=== PATIENT | female | born 1970 | race Caucasian/White ===

== ENCOUNTER 2019-04-12 15:27 | Inpatient (IN) | payer MEDICARE, MEDICAID ==
[2019-04-12 15:57] LABS: % EOSINOPHILS 3.6 % (0.0-5.0); % MONOCYTES 4.6 % (2.0-10.0); % NEUTROPHILS 66.8 % (40.0-80.0); EOSINOPHILE ABSOLUTE 0.3 Th/cmm (0.1-0.4); HEMATOCRIT 41.5 % (41.0-60); HEMOGLOBIN 14.4 gm/dL (12-16); LYMPHOCYTE ABSOLUTE 2.4 Th/cmm (1.5-3.0); MEAN CORPUSCULAR HEMOGLOBIN 28.4 pg (27.0-31.0); MEAN CORPUSCULAR HGB CONC 34.6 pg (28.0-36.0); MONOCYTE ABSOLUTE 0.4 Th/cmm (0.3-1.0); NEUTROPHILE ABSOLUTE 6.5 Th/cmm (1.8-8.0); PLATELET COUNT 247 Th/cmm (150-400); RED BLOOD COUNT 5.06 Mil/cmm (3.80-5.10); RED CELL DISTRIBUTION WIDTH 13.2 % (11.5-20.0); WHITE BLOOD COUNT 9.6 Th/cmm (4.8-10.8)
--- NOTE | 2019-04-12 16:03 | ED Physician Chart ---
ED Chief Complaint/HPI - Patient Information Date Seen:: 04/12/19 Time Seen:: 16:00 Chief Complaint:: psyche history with decrease activity History of Present Illness:: one to two days Allergies:: Allergies Allergy/AdvReac Type Severity Reaction Status Date / Time No Known Allergies Allergy Verified 04/12/19 15:48 Vitals:: Vital Signs - 8 hr 04/12/19 15:49 Temp 98.7 F HR 84 RR 16 BP 120/65 O2 Sat % 96 Historian:: EMS Review:: Nurse's Note Reviewed, EMS run form Reviewed ED Review of Systems - Review of Systems General/Constitutional: No fever ED Past Medical History - Past Medical History Past Medical History: Other (psyche) Family Medical History - Family Member Mother History Unknown: Yes ED Physical Exam - Physical Examination General/Constitutional: Non-toxic appearing Head: Atraumatic Eyes: Lids, conjuctiva normal (sacral decubiti) ENMT: External ears, nose nl Respiratory: Nl effort/Exclusion Cardio Vascular: RRR GI: No tenderness/rebounding/guarding Extremities: Normal digits & nails ED Assessment - Assessment General Assessment: psyche change etiology ED Septic Shock - . Is Septic Shock (SBP<90, OR Lactate>4 mmol\L) present?: No - <6hrs of presentation: Vital Signs: Vital Signs - 8 hr 04/12/19 15:49 Temp 98.7 F HR 84 RR 16 BP 120/65 O2 Sat % 96 ED Reassessment (Disposition) - Reassessment Reassessment Condition:: Unchanged - Patient Disposition Discharge/Transfer:: Acute Care w/in this hosp (need to in hospital evalution failure to eat tsh ua tegretol pending)
[2019-04-12 16:11] LABS: ALB/GLOB RATIO 1.2 (1.0-1.8); ALBUMIN 3.8 gm/dL (3.7-5.3); ALKALINE PHOSPHATASE 69 U/L (34-104); ANION GAP 12.3 (7.0-16.0); BILIRUBIN,TOTAL 0.3 mg/dL (0.3-1.0); BUN - UREA NITROGEN 13 mg/dL (7-25); CALCIUM SERUM 8.8 mg/dL (8.6-10.3); CARBON DIOXIDE 26.4 mEq/L (21.0-31.0); CHLORIDE 103 mEq/L (98-107); CREATININE - SERUM 0.7 mg/dL (0.6-1.2); GFR AFRICAN-AMERICAN > 60.0 ml/min (>90); GFR NON AFRICAN-AMERICAN > 60.0 ml/min; GLUCOSE 172 mg/dL (70-105); POTASSIUM SERUM 3.7 mEq/L (3.5-5.1); SGOT 13 U/L (13-39); SGPT/ALT 8 U/L (7-52); SODIUM SERUM 138 mEq/L (136-145)
[2019-04-12] MEDS ORDERED: Magnesium Hydroxide (MOM) 30 mL UDC PO PRN (20:27)
[2019-04-12] MEDS ORDERED: Maalox 30 mL Cup PO PRN (20:27)
[2019-04-12] MEDS ORDERED: Non-Formulary Item 1 EA (Acetaminophen [Tylenol] 650 MG) PO PRN (20:27)
[2019-04-12] MEDS ORDERED: GLUCAGON HCl 1 MG KIT IM PRN (20:29)
[2019-04-12] MEDS ORDERED: guaiFENesin 200 MG/10 ML UDC PO PRN (20:29)
[2019-04-12] MEDS ORDERED: Albuterol Nebulizer 2.5mg/3mL HHN PRN (20:29)
[2019-04-12] MEDS ORDERED: Ipratropium Neb 0.5 mg/2.5 mL UD HHN PRN (20:29)
[2019-04-12] MEDS ORDERED: Dextrose 50% 50 mL Abboject IVP PRN (20:29)
[2019-04-12] MEDS: D5-0.45NS 1,000 ML IV SCH (21:30)
--- NOTE | 2019-04-12 21:54 | History & Physical ---
ADMIT DATE: 04/12/2019 CHIEF COMPLAINT: Generalized weakness, worsening wounds. HISTORY OF PRESENT ILLNESS: This is a 48-year-old female with history of seizure, psych disorder, was brought in secondary to not acting herself, not taking her medications and feeling sluggish. The patient was brought in the ER and admitted for further management. The patient is not a best historian. Denies chest pain, shortness of breath. PAST MEDICAL HISTORY: As mentioned in history of present illness. PAST SURGICAL HISTORY: Previous brain surgery in the past. ALLERGIES: No known drug allergies. MEDICATIONS: The patient is on Keppra, Tylenol, Dulcolax, Xalatan, magnesium, multivitamins. FAMILY HISTORY: Noncontributory. SOCIAL HISTORY: The patient is a [facility] patient requiring 24-hour total care. REVIEW OF SYSTEMS: This is limited secondary to being in a comatose state. We will try to obtain more detailed review of system at a later date by talking to family members, there was a dad, but my understanding was the patient's guardian, but he recently . There is only one, Zoltan, number is [phone]. We will also try to get information from nursing staff at [facility], [phone]. PHYSICAL EXAMINATION: VITAL SIGNS: Blood pressure 101/67, respirations 18, pulse 82, temperature 98.6. GENERAL: A middle-aged female, appears chronically ill. NECK: Supple. No mass. LUNGS: Equal breath sounds, few rhonchi. HEART: Regular rate and rhythm without appreciable murmurs. ABDOMEN: Soft, globular. EXTREMITIES: Positive excoriations. There is a wound in the sacral area. Please see the picture. Positive contractures. NEUROLOGIC: Limited. LABORATORY DATA: WBC 9, hemoglobin 14, platelets 247. Sodium 120-130, potassium 3.7, BUN 13, creatinine 0.7, blood sugar 172. ASSESSMENT: Generalized weakness, failure to thrive, hyperglycemia, seizure, organic brain syndrome.worsening decub ulcer PLAN: We will continue the patient with the wound care. Continue PPI, insulin sliding scale, Xalatan, fingerstick. We will send UA and C and S. We will check BUN and Keppra. We will monitor the patient closely. aggresive wound care per protocol [facility]# [id number] MTDD
[2019-04-13 04:58] LABS: % BASOPHILS 0.1 % (0.0-2.0); % EOSINOPHILS 3.4 % (0.0-5.0); % LYMPHOCYTES 21.4 % (20.0-50.0); % MONOCYTES 4.9 % (2.0-10.0); % NEUTROPHILS 70.2 % (40.0-80.0); EOSINOPHILE ABSOLUTE 0.3 Th/cmm (0.1-0.4); HEMATOCRIT 41.4 % (41.0-60); HEMOGLOBIN 13.5 gm/dL (12-16); MEAN CELL VOLUME 81.9 fl (81-100); MEAN CORPUSCULAR HEMOGLOBIN 26.7 pg (27.0-31.0); MEAN CORPUSCULAR HGB CONC 32.6 pg (28.0-36.0); MONOCYTE ABSOLUTE 0.5 Th/cmm (0.3-1.0); NEUTROPHILE ABSOLUTE 6.4 Th/cmm (1.8-8.0); PLATELET COUNT 302 Th/cmm (150-400); RED BLOOD COUNT 5.05 Mil/cmm (3.80-5.10); RED CELL DISTRIBUTION WIDTH 13.6 % (11.5-20.0); WHITE BLOOD COUNT 9.2 Th/cmm (4.8-10.8)
[2019-04-13 05:56] LABS: ANION GAP 11.4 (7.0-16.0); BUN - UREA NITROGEN 12 mg/dL (7-25); CALCIUM SERUM 8.9 mg/dL (8.6-10.3); CARBON DIOXIDE 27.2 mEq/L (21.0-31.0); CHLORIDE 105 mEq/L (98-107); CREATININE - SERUM 0.6 mg/dL (0.6-1.2); GFR AFRICAN-AMERICAN > 60.0 ml/min (>90); GFR NON AFRICAN-AMERICAN > 60.0 ml/min; GLUCOSE 166 mg/dL (70-105); POTASSIUM SERUM 3.6 mEq/L (3.5-5.1); SODIUM SERUM 140 mEq/L (136-145)
[2019-04-13] MEDS: INSULIN LISPRO SLIDING SCALE 100 UNITS/ML UNIT SUBQ SCH ×2 (08:36→17:09)
[2019-04-13] MEDS: Multivitamin w/ Minerals Tab PO SCH (08:39)
--- NOTE | 2019-04-13 12:21 | Internal Medicine Prog Note ---
Internal Medicine Subjective - Subjective Patient seen and examined:: with staff, chart reviewed Patient is:: awake, verbal, interactive, in bed, confused Patient Complaints of:: congestion Per staff patient has:: no adverse event, no episodes of fall, poor appetite Internal Medicine Objective - Results Result Diagrams: 04/13/19 04:25 04/13/19 04:25 Recent Labs: Laboratory Last Values WBC 9.2 Th/cmm (4.8-10.8) 04/13/19 04:25 RBC 5.05 Mil/cmm (3.80-5.10) 04/13/19 04:25 Hgb 13.5 gm/dL (12-16) 04/13/19 04:25 Hct 41.4 % (41.0-60) 04/13/19 04:25 MCV 81.9 fl (81-100) 04/13/19 04:25 MCH 26.7 pg (27.0-31.0) L 04/13/19 04:25 MCHC Differential 32.6 pg (28.0-36.0) 04/13/19 04:25 RDW 13.6 % (11.5-20.0) 04/13/19 04:25 Plt Count 302 Th/cmm (150-400) D 04/13/19 04:25 MPV 8.2 fl 04/13/19 04:25 Neutrophils % 70.2 % (40.0-80.0) 04/13/19 04:25 Lymphocytes % 21.4 % (20.0-50.0) 04/13/19 04:25 Monocytes % 4.9 % (2.0-10.0) 04/13/19 04:25 Eosinophils % 3.4 % (0.0-5.0) 04/13/19 04:25 Basophils % 0.1 % (0.0-2.0) 04/13/19 04:25 Sodium 140 mEq/L (136-145) 04/13/19 04:25 Potassium 3.6 mEq/L (3.5-5.1) 04/13/19 04:25 Chloride 105 mEq/L (98-107) 04/13/19 04:25 Carbon Dioxide 27.2 mEq/L (21.0-31.0) 04/13/19 04:25 Anion Gap 11.4 (7.0-16.0) 04/13/19 04:25 BUN 12 mg/dL (7-25) 04/13/19 04:25 Creatinine 0.6 mg/dL (0.6-1.2) 04/13/19 04:25 Est GFR ( Amer) > 60.0 ml/min (>90) 04/13/19 04:25 Est GFR (Non-Af Amer) > 60.0 ml/min 04/13/19 04:25 BUN/Creatinine Ratio 20.0 04/13/19 04:25 Glucose 166 mg/dL (70-105) H 04/13/19 04:25 POC Glucose 136 MG/DL (70 - 105) H 04/13/19 08:33 Calcium 8.9 mg/dL (8.6-10.3) 04/13/19 04:25 Total Bilirubin 0.3 mg/dL (0.3-1.0) 04/12/19 15:40 AST 13 U/L (13-39) 04/12/19 15:40 ALT 8 U/L (7-52) 04/12/19 15:40 Alkaline Phosphatase 69 U/L (34-104) 04/12/19 15:40 Ammonia 30 umol/L (16-53) 04/13/19 04:25 B-Natriuretic Peptide < 5.0 pg/mL (5.0-100.0) L 04/13/19 04:25 Total Protein 7.0 gm/dL (6.0-8.3) 04/12/19 15:40 Albumin 3.8 gm/dL (3.7-5.3) 04/12/19 15:40 Globulin 3.2 gm/dL 04/12/19 15:40 Albumin/Globulin Ratio 1.2 (1.0-1.8) 04/12/19 15:40 TSH 1.03 uIU/ml (0.34-5.60) 04/12/19 15:40 Carbamazepine < 2.0 ug/ml (4.0-12.0) L 04/12/19 15:40 - Physical Exam Vitals and I&O: Vital Signs Temp 98.2 F 04/13/19 04:00 Pulse 62 04/13/19 06:38 Resp 18 04/13/19 06:38 BP 127/75 04/13/19 04:00 Pulse Ox 93 04/13/19 06:38 Intake & Output 04/12/19 04/13/19 04/13/19 18:59 06:59 18:59 Output Total 700 Balance -700 Weight (lbs) 77.111 kg 77.111 kg Output: Urine 700 Other: Weight Source Estimated Bedscale Active Medications: Current Medications Acetaminophen (Tylenol) 650 mg PO Q4H PRN PRN Reason: Pain Or Fever above 101 Stop: 06/11/19 20:28 Al Hydrox/Mg Hydrox/Simethicone (Maalox) 30 ml PO Q4H PRN PRN Reason: GI UPSET Albuterol Sulfate (Albuterol 2.5mg/3ml Neb Ud) 2.5 mg HHN Q2HRT PRN PRN Reason: Shortness of Breath or Wheeze Stop: 06/11/19 20:28 Bisacodyl (Dulcolax 10 Mg Supp) 10 mg RC Q24H PRN PRN Reason: IF MOM INEFFECTIVE Stop: 06/11/19 20:26 Dextrose (D50w) 50 ml IVP PRN PRN PRN Reason: Blood Glucose less than 70 Stop: 06/11/19 20:28 Dextrose (Glutose 40%) 18.75 gm PO PRN PRN PRN Reason: Blood Glucose less than 70 Stop: 06/11/19 20:28 Glucagon (Glucagen) 1 mg IM PRN PRN PRN Reason: Blood Glucose less than 70 Stop: 06/11/19 20:28 Guaifenesin (Robitussin) 200 mg PO Q4HR PRN PRN Reason: Cough or Congestion Stop: 06/11/19 20:28 Dextrose/Sodium Chloride (D5-0.45ns) 1,000 mls @ 80 mls/hr IV .[id number] [facility] Stop: 06/11/19 20:29 Last Admin: 04/12/19 21:30 Dose: 80 mls/hr Insulin Human Lispro (Humalog Insulin Sliding Scale) 0 units SUBQ BID [facility]; Protocol Stop: 06/12/19 08:59 Last Admin: 04/13/19 08:36 Dose: Not Given Ipratropium [place] (Atrovent Neb 0.5mg/2.5ml) 0.5 mg HHN Q2HRT PRN PRN Reason: Shortness of Breath or Wheeze Stop: 06/11/19 20:28 Latanoprost (Xalatan 0.005% Ophth Soln) 1 drop EACH EYE HS [facility] Stop: 06/11/19 20:59 Last Admin: 04/12/19 21:30 Dose: Not Given Levetiracetam (Keppra) 500 mg PO Q12H [place] Stop: 06/11/19 20:29 Last Admin: 04/13/19 08:39 Dose: 500 mg Lorazepam (Ativan) 1 mg IV Q4H PRN; Protocol PRN Reason: Seizure Stop: 06/11/19 20:28 Magnesium Hydroxide (Milk Of Magnesia) 30 ml PO Q24H PRN PRN Reason: IF NO BM IN THREE DAYS Stop: 06/11/19 20:26 Ondansetron HCl (Zofran) 4 mg IV Q8H PRN PRN Reason: Nausea / Vomiting Stop: 06/11/19 20:28 Zolpidem Tartrate (Ambien) 10 mg PO HS PRN PRN Reason: Insomnia Stop: 06/11/19 20:28 General: lethargic HEENT: NC/AT, PERRLA, EOMI Neck: Supple, No JVD Lungs: rales Cardiovascular: RRR, Normal S1, Normal S2, without murmur Abdomen: soft, non-tender, non-distended, positive bowel sound Extremities: excoriation, ulcers stage 2 Neurological: no change, disorganized Internal Medicine Assmt/Plan - Assessment Assessment: ASSESSMENT: Generalized weakness, failure to thrive, hyperglycemia, seizure, organic brain syndrome.worsening decub ulcer - Plan Plan: PLAN: We will continue the patient with the wound care. Continue PPI, insulin sliding scale, Xalatan, fingerstick. We will send UA and C and S. We will check BUN and Keppra. We will monitor the patient closely. aggresive wound care per protocol
--- NOTE | 2019-04-13 14:07 | Diagnostic Imaging Report ---
Head CT without intravenous contrast Indication: Confusion Comparison: None Technique: Axial images were obtained from the vertex to the skull base without IV contrast. Coronal reconstructions were made. Total DLP: 913, [id number] FINDINGS: Images of the brain obtained without contrast demonstrate evidence of bifrontal and left temporal craniotomies. There is diffuse encephalomalacia of the bifrontal lobe regions with abnormal soft tissue tissue density of the left basal ganglia region. Faint densities are seen along the bilateral periventricular regions, probably calcifications. There is also encephalomalacia of the left temporal lobe. Ex vacuo dilatation of bifrontal horns of the lateral ventricles and left temporal horn is also noted. Atrophy is noted. No midline shift. There is mild mucosal thickening of paranasal sinuses small air-fluid level in the right maxillary sinus. IMPRESSION: Diffuse postsurgical changes involving the bifrontal lobes and left temporal lobe with evidence of previous craniotomies. Diffuse encephalomalacia of the bifrontal lobes and left temporal lobe with associated ex vacuo dilatation of the lateral ventricles in these regions. Somewhat abnormal configuration of left basal ganglia region. This is indeterminate. Correlation old exams be helpful. Underlying mass lesion cannot be completely excluded. If indicated follow-up MRI with IV contrast may be obtained for further assessment Faint density seen along the bilateral lateral periventricular regions probably related to calcifications. Otherwise no gross hemorrhage identified Small air-fluid level of the right maxillary sinus.
[2019-04-13] MEDS: D5-0.45NS 1,000 ML IV SCH (14:55)
[2019-04-13 21:45] LABS: URINE SOURCE RANDOM
[2019-04-13 21:50] LABS: URINE BILIRUBIN NEGATIVE (NEGATIVE); URINE BLOOD NEGATIVE (NEGATIVE); URINE GLUCOSE (UA) NEGATIVE (NEGATIVE); URINE KETONE NEGATIVE (NEGATIVE); URINE LEUKOCYTE ESTERASE NEGATIVE (NEGATIVE); URINE NITRATE NEGATIVE (NEGATIVE); URINE PH 5.5 (4.6 - 8.0); URINE PROTEIN NEGATIVE (NEGATIVE); URINE UROBILINOGEN 0.2 E.U./dL (0.2 - 1.0)
[2019-04-13 21:51] LABS: URINE COLOR YELLOW
[2019-04-13 21:52] LABS: URINE CLARITY CLEAR (CLEAR); URINE MICROSCOPIC INDICATED? YES
[2019-04-13 21:54] LABS: URINE BACTERIA FEW /hpf (NONE SEEN); URINE EPITHELIAL CELLS FEW /lpf (FEW); URINE RBC 0-2 /hpf (0-5)
[2019-04-14] MEDS: D5-0.45NS 1,000 ML IV SCH ×2 (04:15→19:01)
[2019-04-14] MEDS: INSULIN LISPRO SLIDING SCALE 100 UNITS/ML UNIT SUBQ SCH ×2 (08:36→17:03)
[2019-04-14] MEDS: Multivitamin w/ Minerals Tab PO SCH (08:46)
[2019-04-14 13:09] LABS: A1C 6.9 % (4.8-5.6); FOLIC ACID 7.4 ng/mL (>3.0)
--- NOTE | 2019-04-14 14:45 | Internal Medicine Prog Note ---
Internal Medicine Subjective - Subjective Patient seen and examined:: with staff, chart reviewed, other (not eating) Patient is:: awake, verbal, interactive, in bed, confused Patient Complaints of:: congestion Per staff patient has:: no adverse event, no episodes of fall, poor appetite Internal Medicine Objective - Results Result Diagrams: 04/13/19 04:25 04/13/19 04:25 Recent Labs: Laboratory Last Values WBC 9.2 Th/cmm (4.8-10.8) 04/13/19 04:25 RBC 5.05 Mil/cmm (3.80-5.10) 04/13/19 04:25 Hgb 13.5 gm/dL (12-16) 04/13/19 04:25 Hct 41.4 % (41.0-60) 04/13/19 04:25 MCV 81.9 fl (81-100) 04/13/19 04:25 MCH 26.7 pg (27.0-31.0) L 04/13/19 04:25 MCHC Differential 32.6 pg (28.0-36.0) 04/13/19 04:25 RDW 13.6 % (11.5-20.0) 04/13/19 04:25 Plt Count 302 Th/cmm (150-400) D 04/13/19 04:25 MPV 8.2 fl 04/13/19 04:25 Neutrophils % 70.2 % (40.0-80.0) 04/13/19 04:25 Lymphocytes % 21.4 % (20.0-50.0) 04/13/19 04:25 Monocytes % 4.9 % (2.0-10.0) 04/13/19 04:25 Eosinophils % 3.4 % (0.0-5.0) 04/13/19 04:25 Basophils % 0.1 % (0.0-2.0) 04/13/19 04:25 Sodium 140 mEq/L (136-145) 04/13/19 04:25 Potassium 3.6 mEq/L (3.5-5.1) 04/13/19 04:25 Chloride 105 mEq/L (98-107) 04/13/19 04:25 Carbon Dioxide 27.2 mEq/L (21.0-31.0) 04/13/19 04:25 Anion Gap 11.4 (7.0-16.0) 04/13/19 04:25 BUN 12 mg/dL (7-25) 04/13/19 04:25 Creatinine 0.6 mg/dL (0.6-1.2) 04/13/19 04:25 Est GFR ( Amer) > 60.0 ml/min (>90) 04/13/19 04:25 Est GFR (Non-Af Amer) > 60.0 ml/min 04/13/19 04:25 BUN/Creatinine Ratio 20.0 04/13/19 04:25 Glucose 166 mg/dL (70-105) H 04/13/19 04:25 POC Glucose 144 MG/DL (70 - 105) H 04/14/19 08:33 Calcium 8.9 mg/dL (8.6-10.3) 04/13/19 04:25 Total Bilirubin 0.3 mg/dL (0.3-1.0) 04/12/19 15:40 AST 13 U/L (13-39) 04/12/19 15:40 ALT 8 U/L (7-52) 04/12/19 15:40 Alkaline Phosphatase 69 U/L (34-104) 04/12/19 15:40 Ammonia 30 umol/L (16-53) 04/13/19 04:25 B-Natriuretic Peptide < 5.0 pg/mL (5.0-100.0) L 04/13/19 04:25 Total Protein 7.0 gm/dL (6.0-8.3) 04/12/19 15:40 Albumin 3.8 gm/dL (3.7-5.3) 04/12/19 15:40 Globulin 3.2 gm/dL 04/12/19 15:40 Albumin/Globulin Ratio 1.2 (1.0-1.8) 04/12/19 15:40 Vitamin B12 389 pg/mL (232-1245) 04/13/19 04:25 Folic Acid 7.4 ng/mL (>3.0) 04/13/19 04:25 TSH 1.03 uIU/ml (0.34-5.60) 04/12/19 15:40 Urine Source RANDOM 04/13/19 21:40 Urine Color YELLOW 04/13/19 21:40 Urine Clarity CLEAR (CLEAR) 04/13/19 21:40 Urine pH 5.5 (4.6 - 8.0) 04/13/19 21:40 Ur Specific [place] 1.020 (1.005-1.030) 04/13/19 21:40 Urine Protein NEGATIVE mg/dL (NEGATIVE) 04/13/19 21:40 Urine Glucose (UA) NEGATIVE mg/dL (NEGATIVE) 04/13/19 21:40 Urine Ketones NEGATIVE mg/dL (NEGATIVE) 04/13/19 21:40 Urine Blood NEGATIVE (NEGATIVE) 04/13/19 21:40 Urine Nitrate NEGATIVE (NEGATIVE) 04/13/19 21:40 Urine Bilirubin NEGATIVE (NEGATIVE) 04/13/19 21:40 Urine Urobilinogen 0.2 E.U./dL (0.2 - 1.0) 04/13/19 21:40 Ur Leukocyte Esterase NEGATIVE (NEGATIVE) 04/13/19 21:40 Urine RBC 0-2 /hpf (0-5) 04/13/19 21:40 Urine WBC 2-5 /hpf (0-5) 04/13/19 21:40 Ur Epithelial Cells FEW /lpf (FEW) 04/13/19 21:40 Urine Bacteria FEW /hpf (NONE SEEN) 04/13/19 21:40 Carbamazepine < 2.0 ug/ml (4.0-12.0) L 04/12/19 15:40 - Physical Exam Vitals and I&O: Vital Signs Temp 98.6 F 04/14/19 12:00 Pulse 67 04/14/19 13:06 Resp 18 04/14/19 13:06 BP 110/71 04/14/19 12:00 Pulse Ox 94 04/14/19 13:06 Intake & Output 04/13/19 04/14/19 04/14/19 18:59 06:59 18:59 Intake Total 1000 1030 Balance 1000 1030 Weight (lbs) 72.575 kg Intake: Intake, IV Amount 1000 1000 D5-0.45NS 1,000 ml @ 80 1000 1000 mls/hr IV .[id number] [facility] Rx #:[id number] Oral 30 Other: Weight Source Estimated Active Medications: Current Medications Acetaminophen (Tylenol) 650 mg PO Q4H PRN PRN Reason: Pain Or Fever above 101 Stop: 06/11/19 20:28 Al Hydrox/Mg Hydrox/Simethicone (Maalox) 30 ml PO Q4H PRN PRN Reason: GI UPSET Albuterol Sulfate (Albuterol 2.5mg/3ml Neb Ud) 2.5 mg HHN Q2HRT PRN PRN Reason: Shortness of Breath or Wheeze Stop: 06/11/19 20:28 Ascorbic Acid (Vitamin C) 500 mg PO DAILY [facility] Stop: 06/13/19 08:59 Last Admin: 04/14/19 08:46 Dose: 500 mg Bisacodyl (Dulcolax 10 Mg Supp) 10 mg RC Q24H PRN PRN Reason: IF MOM INEFFECTIVE Stop: 06/11/19 20:26 Dextrose (D50w) 50 ml IVP PRN PRN PRN Reason: Blood Glucose less than 70 Stop: 06/11/19 20:28 Dextrose (Glutose 40%) 18.75 gm PO PRN PRN PRN Reason: Blood Glucose less than 70 Stop: 06/11/19 20:28 Glucagon (Glucagen) 1 mg IM PRN PRN PRN Reason: Blood Glucose less than 70 Stop: 06/11/19 20:28 Guaifenesin (Robitussin) 200 mg PO Q4HR PRN PRN Reason: Cough or Congestion Stop: 06/11/19 20:28 Dextrose/Sodium Chloride (D5-0.45ns) 1,000 mls @ 80 mls/hr IV .[id number] [facility] Stop: 06/11/19 20:29 Last Admin: 04/14/19 04:15 Dose: 80 mls/hr Insulin Human Lispro (Humalog Insulin Sliding Scale) 0 units SUBQ BID [facility]; Protocol Stop: 06/12/19 08:59 Last Admin: 04/14/19 08:36 Dose: Not Given Ipratropium [place] (Atrovent Neb 0.5mg/2.5ml) 0.5 mg HHN Q2HRT PRN PRN Reason: Shortness of Breath or Wheeze Stop: 06/11/19 20:28 Latanoprost (Xalatan 0.005% Ophth Soln) 1 drop EACH EYE HS [facility] Stop: 06/11/19 20:59 Last Admin: 04/13/19 20:16 Dose: 1 drop Levetiracetam (Keppra) 500 mg PO Q12H [facility] Stop: 06/11/19 20:29 Last Admin: 04/14/19 08:46 Dose: 500 mg Lorazepam (Ativan) 1 mg IV Q4H PRN; Protocol PRN Reason: Seizure Stop: 06/11/19 20:28 Magnesium Hydroxide (Milk Of Magnesia) 30 ml PO Q24H PRN PRN Reason: IF NO BM IN THREE DAYS Stop: 06/11/19 20:26 Ondansetron HCl (Zofran) 4 mg IV Q8H PRN PRN Reason: Nausea / Vomiting Stop: 06/11/19 20:28 Zinc Sulfate (Zinc Sulfate) 220 mg PO DAILY [facility] Stop: 06/13/19 08:59 Last Admin: 04/14/19 08:46 Dose: 220 mg Zolpidem Tartrate (Ambien) 10 mg PO HS PRN PRN Reason: Insomnia Stop: 06/11/19 20:28 Last Admin: 04/14/19 01:50 Dose: 10 mg General: lethargic HEENT: NC/AT, PERRLA, EOMI Neck: Supple, No JVD Lungs: rales Cardiovascular: RRR, Normal S1, Normal S2, without murmur Abdomen: soft, non-tender, non-distended, positive bowel sound Extremities: excoriation, ulcers stage 2 Neurological: no change, disorganized Internal Medicine Assmt/Plan - Assessment Assessment: ASSESSMENT: Generalized weakness, failure to thrive, hyperglycemia, seizure, organic brain syndrome.worsening decub ulcer - Plan Plan: PLAN: We will continue the patient with the wound care. Continue PPI, insulin sliding scale, Xalatan, fingerstick. We will send UA and C and S. We will check BUN and Keppra. We will monitor the patient closely. aggresive wound care per protocol refer to psych as well Nutritional Asmnt/Malnutr-PDOC - Dietary Evaluation Malnutrition Findings (Please click <Entered> for more info): Nutritional Asmnt/Malnutrition Start: 04/13/19 13: 42 Text: Status: Complete Freq: Protocol: Document 04/13/19 13:42 JERMAINE (Rec: 04/13/19 13:45 JERMAINE [id number]) Nutritional Asmnt/Malnutrition Patient General Information Nutritional Screening Moderate Risk Consult Diagnosis Generalized Weakness Pertinent Medical Hx/Surgical Hx Seizure, Psych disorder, previous brain surgery Subjective Information Consult: Pressure Ulcer to sacrococcyx, poor PO intake Pt is a 48-year-old female admitted on 04/12 from senior care d/t psych history with decreased activity. Visited Pt at 1:30pm, Pt was sleeping. Spoke with RNDesirae, Pt ate 80% breakfast without assist and Pt slept through lunch. RN stated the Pts appetite seemed just fine, she will offer her a snack once she wakes up. Per MD, Pt is receiving Zinc Sulfate, and per PO intake this morning, kcals and Pro intake is adequate to meet nutritional needs and promote and support wound healing. Will continue to monitor PO intake and any S /S of decreased appetite and/ or poor PO intake. HT: 5 FT WT: 170 LB (77.2 kg) ABW: 118 LB (53.36 kg) BMI: 33.24 (Obese) GI: WNL, Soft, Non-tender, Round BM: Not noted I/O: /700 (-700) Skin: Warm, Dry, Loose, Area of Concern Wound: PU to sacrococcyx covered with foam dressing Boris: 15 Diet Order: Cardiac, Mechanical Soft Estimated Energy Needs: ( Geriatric, ABW) 1359-3651 kcals (25-30 kcals/ kg) 53-64g Pro (1.0-1.2 g/kg) 4034-5981 ml (25-30 ml/kg) Current Diet Order/ Nutrition Support Cardiac, Mechanical Soft Pertinent Medications Maalox (PRN), Albuterol (PRN), Vitamin C, Dulcolax (PRN), D50w, Glutose 40% (PRN), D5-0. 45ns, Glucagon (PRN), INS-SS, MOM (PRN), Zofran (PRN), Zinc Sulfate Pertinent Labs 04/13: Glucose 166 POC Glucose (last 24 hours): 136 Nutritional Hx/Data Height 1.52 m Height (Calculated Centimeters) 152.4 Current Weight (lbs) 77.111 kg Weight (Calculated Kilograms) 77.1 Weight (Calculated Grams) 69352.7 [place] Body Weight 100 LB (45.45 kg) % [place] Body Weight 170 Body Mass Index (BMI) 33.2 Weight Status Obese GI Symptoms Last BM Not noted Skin Integrity/Comment: Skin: Warm, Dry, Loose, Area of Concern Wound: PU to sacrococcyx covered with foam dressing Boris: 15 Current %PO Good (75-100%) Estimated Nutritional Goals BEE in Kcals: Adj wt of IBW Calories/Kcals/Kg 25-30 Kcals Calculated 5787-6708 Protein: Adj wt of IBW Protein g/k.0-1.2 Protein Calculated 53-64 Fluid: ml 7190-6243 ml (25-30 ml/kg) Nutritional Problem 1. Problem Problem Increased nutrient utilization Etiology r/t wound healing Signs/Symptoms: aeb PU to sacrococcyx Malnutrition Related to Morbid Obesity Malnutrition related to morbid obesity No Intervention/Recommendation Comments Continue with Cardiac, Mechanical Soft diet as ordered. Expected Outcomes/Goals Expected Outcomes/Goals 1. PO intake to meet 75% of nutritional needs. 2. Monitor PO intake, wt, nutrition related labs, and skin integrity to trend WNL. 3. F/U as low risk in 7 days, 04/20
--- NOTE | 2019-04-14 18:27 | Consultation ---
DATE OF CONSULTATION: 04/14/2019 Information obtained by directly interviewing the patient as well as reviewing the admission papers. PHYSICIAN REQUESTING CONSULTATION: Dr. Al. REASON FOR CONSULTATION: Depression. HISTORY OF PRESENT ILLNESS: This is a 48-year-old woman, resident [facility] a jail facility, admitted over here for her depression and being very sluggish, not eating. Staff was spoken to. The patient is interviewed. Chart is reviewed. During the evaluation, the patient has been nodding her head, but is not giving much of any information. The patient is reported to have been treated for seizures and the patient at this time is not providing much of information. The patient is also reported to have ulcers in the sacral region. Sleep is noted to be poor. Appetite is noted to be poor. Prior to the hospitalization, the patient is not providing much of information with regards to her psychotic symptoms. No aggressive behavior is noted. The patient, however, is noted to be alert and aware that she is in the hospital. DIAGNOSTIC IMPRESSION: Depressive disorder, not otherwise specified. PLAN: To continue the patient with the supportive therapy and consider antidepressant medication. Thank you, Dr. Al for allowing me to participate in the care of the patient. JOB# [id number]
[2019-04-15 04:41] LABS: % EOSINOPHILS 4.1 % (0.0-5.0); % MONOCYTES 3.1 % (2.0-10.0); % NEUTROPHILS 71.8 % (40.0-80.0); EOSINOPHILE ABSOLUTE 0.4 Th/cmm (0.1-0.4); HEMATOCRIT 40.5 % (41.0-60); HEMOGLOBIN 13.5 gm/dL (12-16); LYMPHOCYTE ABSOLUTE 1.9 Th/cmm (1.5-3.0); MEAN CELL VOLUME 80.9 fl (81-100); MEAN CORPUSCULAR HEMOGLOBIN 26.9 pg (27.0-31.0); MEAN CORPUSCULAR HGB CONC 33.2 pg (28.0-36.0); MONOCYTE ABSOLUTE 0.3 Th/cmm (0.3-1.0); NEUTROPHILE ABSOLUTE 6.3 Th/cmm (1.8-8.0); PLATELET COUNT 283 Th/cmm (150-400); RED BLOOD COUNT 5.01 Mil/cmm (3.80-5.10); RED CELL DISTRIBUTION WIDTH 13.3 % (11.5-20.0); WHITE BLOOD COUNT 8.9 Th/cmm (4.8-10.8)
[2019-04-15 04:55] LABS: ANION GAP 11.3 (7.0-16.0); BUN - UREA NITROGEN 9 mg/dL (7-25); CALCIUM SERUM 8.6 mg/dL (8.6-10.3); CARBON DIOXIDE 25.1 mEq/L (21.0-31.0); CHLORIDE 107 mEq/L (98-107); CREATININE - SERUM 0.6 mg/dL (0.6-1.2); GFR AFRICAN-AMERICAN > 60.0 ml/min (>90); GFR NON AFRICAN-AMERICAN > 60.0 ml/min; GLUCOSE 163 mg/dL (70-105); POTASSIUM SERUM 3.4 mEq/L (3.5-5.1); SODIUM SERUM 140 mEq/L (136-145)
[2019-04-15] MEDS: D5-0.45NS 1,000 ML IV SCH ×2 (05:40→15:23)
[2019-04-15] MEDS: Multivitamin w/ Minerals Tab PO SCH (08:34)
[2019-04-15] MEDS: INSULIN LISPRO SLIDING SCALE 100 UNITS/ML UNIT SUBQ SCH (08:36)
[2019-04-15] MEDS ORDERED: Potassium Chloride 20 mEq ER Tab PO ONE (11:51)
--- NOTE | 2019-04-15 15:11 | Discharge Summary ---
DATE OF DISCHARGE: 04/15/2019 CHIEF COMPLAINT: Generalized weakness, worsening wounds. FINAL DIAGNOSES: Generalized weakness, decubitus ulcer, failure to thrive, hyperglycemia, seizure, and organic brain syndrome. HISTORY: This is a 48-year-old female with a history of seizure, psych disorder, brought in secondary to not eating, not taking her medication and sluggish. The patient was seen in the ER and brought in for further management. PHYSICAL EXAMINATION: VITAL SIGNS: Blood pressure 113/64, respirations 16, pulse 80, temperature 98.5. GENERAL: This is an elderly female, appears chronically ill. NECK: Supple. No mass. LUNGS: Equal breath sounds, few rhonchi. HEART: Regular rate and rhythm with no appreciable murmur. ABDOMEN: Soft, globular. EXTREMITIES: Positive excoriation. NEUROLOGIC: Limited. HOSPITAL COURSE: The patient was admitted to medical floor, given aggressive IV hydration. Electrolytes were corrected. Head CT did not show any acute changes. It showed diffuse postsurgical changes of the bifrontal lobes and left temporal lobes and previous craniotomy with diffuse encephalomalacia. The patient was also referred to Psychiatry, Dr. Lindo, adjust her psychotropic medications. The patient is cleared for discharge. CONDITION ON DISCHARGE: Fair. OVERALL PROGNOSIS: Poor. DISCHARGE INSTRUCTIONS: The patient will continue with wound care as well as needs a rehab bed. The patient will be monitored closely. [facility]# [id number]
[2019-04-17 06:06] LABS: FOLIC ACID 6.8 ng/mL (>3.0)
== END 2019-04-15 16:24 | DRG 947 ==
LOC: ER 15:27 → MSI 19:07
PROVIDERS: ADMIT Internal Medicine; ATTEND Internal Medicine
DX: R53.1 Weakness (principal); R53.2 Functional quadriplegia; R56.9 Unspecified convulsions; R62.7 Adult failure to thrive; R73.9 Hyperglycemia, unspecified; L89.152 Pressure ulcer of sacral region, stage 2; Z68.32 Body mass index [BMI] 32.0-32.9, adult; L89.159 Pressure ulcer of sacral region, unspecified stage; F32.9 Major depressive disorder, single episode, unspecified; F09 Unspecified mental disorder due to known physiological condition; G93.89 Other specified disorders of brain; Z85.841 Personal history of malignant neoplasm of brain; Z98.890 Other specified postprocedural states
CPT/HCPCS: 36415-UA; 70450-TC; 80048-TC; 80053-TC; 80156-TC; 80299-90; 81001-TC; 82140-TC; 82607-90; 82746-90; 82948-90; 83036-90; 83880-TC; 84443-TC; 85025-TC; 94760; J1885; J2060; Z7610